=== PATIENT | male | born 1970 | race African-American/Black ===

== ENCOUNTER 2024-10-13 01:25 | Emergency (ER) | payer OTHER, SELFPAY ==
[2024-10-13 01:42] VITALS: BP 171/96; PULSE 87; TEMP 37.3; O2SAT 100; BMI 28.7
--- NOTE | 2024-10-13 01:47 | CT_ITS ---
The [address] [address] Patient Name: YOVANY BROTHERS MRN: [id number] date: 1970 Sex: M Assigned Patient Location: ER Current Patient Location: Accession/Order Number: [id number] Exam Date: 10/13/2024 02:14 Report Date: 10/13/2024 03:22 At the request of: RAMEZ CONLEY Procedure: CT abdomen pelvis w con EXAM: CT abdomen pelvis w con HISTORY: Left upper quadrant pain. Constipation. COMPARISON: None. TECHNIQUE: IV contrast enhanced CT imaging the abdomen and pelvis was performed using 100 mL of Omnipaque 300. Sagittal and coronal reconstructions are provided. Dose reduction techniques were achieved by using automated exposure control and/or adjustment of mA and/or kV according to patient size and/or use of iterative reconstruction technique. FINDINGS: CT ABDOMEN: The lung bases are clear. The heart is unremarkable. The liver, gallbladder, pancreas, spleen and right adrenal gland are unremarkable. There is a nonspecific 1.1 cm left adrenal nodule measuring 53 Hounsfield units on image 29 of series 3, not meeting CT criteria for an adenoma. There is multifocal bilateral renal cortical scarring. The kidneys are otherwise unremarkable. The stomach, small bowel and IVC are normal in appearance. There are mild calcifications in the otherwise unremarkable abdominal aorta and iliac arteries. CT PELVIS: A normal appendix is seen on images 64 through 75. The pelvic small bowel loops and urinary bladder are unremarkable. The prostate is enlarged. There is mild left colon diverticulosis with a moderate to large volume of stool in the proximal half of the colon. Fat-containing bilateral inguinal hernias are present. No acute inflammatory change, free fluid, loculated fluid, free air, soft tissue gas or acute osseous abnormality is seen in the abdomen or pelvis. CT/CT abdomen pelvis w con IMPRESSION: 1. No acute diagnostic abnormality in the abdomen or pelvis. No specific cause of left upper quadrant pain is identified. 2. Nonspecific 1.1 cm left adrenal nodule not meeting CT criteria for an adenoma. 3. Moderate to large volume of stool in the proximal half of the colon corresponding to provided history of constipation. 4. Prostatomegaly. Electronically authenticated by: TOBY SORTO Date: 10/13/2024 03:22
--- NOTE | 2024-10-13 01:48 | ED_ITS ---
HPI - Abdominal Pain General Chief Complaint: Abdominal Pain Stated Complaint: ABD PAIN constipation Time Seen by Provider: 10/13/24 01:44 History of Present Illness HPI narrative: patient presents complaining of abdominal pain. no nausea or vomiting. States it feels like a bubble LUQ area. States similar pain in the past . Has tried OTC laxatives without any benefit. Describes passing 2 small stools. No nausea or vomiting Related Data Home Medications ?Medication ?Instructions ?Recorded ?Confirmed No Known Home Medications 10/13/24 10/13/24 Allergies Allergy/AdvReac Type Severity Reaction Status Date / Time No Known Drug Allergies Allergy Verified 10/13/24 01:49 Review of Systems ROS Status of ROS 10 or more systems reviewed and unremark able except as noted in history and below PFSH PFSH Social History Little interest or pleasure in doing things: not at all Feeling down, depressed, or hopeless: not at all Exam Constitutional Vital Signs, click to edit/add: Last Vital Signs Temp 99.1 F 10/13/24 01:42 Pulse 87 10/13/24 01:42 Resp 16 10/13/24 01:42 BP 171/96 H 10/13/24 01:42 Pulse Ox 100 10/13/24 01:42 O2 Del Method Room Air 10/13/24 01:42 Common normals: no apparent distress, average body habitus, oriented x3, no limitations, healthy appearing, alert and well nourished [facility] Common normals: normocephalic and head/scalp atraumatic Eye Common normals: PERRL, EOMs intact bilaterally and conjunctivae normal Respiratory Common normals: normal respiratory effort, no retractions, no use of accessory muscles and clear to auscultation bilaterally Cardio Common normals: regular rate, regular rhythm, S1 normal heart sound and S2 normal heart sound GI Common normals: Normal to inspection, nondistended, normoactive bowel sounds present, soft to palpation and non-tender Extremity Common normals: normal to inspection and full ROM Neuro Common normals: oriented x3, CN's II-XII intact bilaterally, moves all extremities and no focal motor deficits Psych Appearance: grossly normal Course Vital Signs Vital signs: Vital Signs Temperature 99.1 F 10/13/24 01:42 Pulse Rate 87 10/13/24 01:42 Respiratory Rate 16 10/13/24 01:42 Blood Pressure 171/96 H 11/18/24 01:42 Pulse Oximetry 100 10/13/24 01:42 Oxygen Delivery Method Room Air 10/13/24 01:42 Temperature 99.1 F 10/13/24 01:42 Pulse Rate 87 10/13/24 01:42 Respiratory Rate 16 10/13/24 01:42 Blood Pressure 171/96 H 10/13/24 01:42 Pulse Oximetry 100 10/13/24 01:42 Oxygen Delivery Method Room Air 10/13/24 01:42 MDM - Abdominal Pain MDM Narrative Medical decision making narrative: patient presents complaining of constipation. States he tried OTC medication without success. Abdominal exam unremarkable. CT with findings of constipation with stool in proximal half of the colon. No assocaited nausea or vomiting. labs with BS 245. Patient is known diabetic and was on Metformin in the past but he self d/yana. He is in no distress. given dose of magnesium citrate and advised to follow up with his doctor regarding his diabetes and constipation labs also demonstrate mild elevation of lipase and alk phos. Again abdomen is nontender and CT without any abnormal findings related to his biliary tract or pancreas Lab Data Labs: Lab Results 10/13/24 Range/Units 02:03 WBC 6.7 (4.0-11.0) 10^3/uL RBC 5.60 (4.70-6.10) 10^6/uL Hgb 16.2 (14.0-18.0) g/dL Hct 47.0 (42.0-54.0) % MCV 83.9 (80.0-94.0) fL MCH 28.9 (25.9-34.0) pg MCHC 34.5 (29.9-35.2) g/dL RDW 12.6 (11.0-15.0) % Plt Count 183 (150-450) 10^3/uL MPV 11.0 (9.5-13.5) fL Neut % (Auto) 57.9 (43.0-75.0) % Lymph % (Auto) 33.3 (20.5-60.0) % Mower % (Auto) 7.6 (1.7-12.0) % Eos % (Auto) 0.6 L (0.9-7.0) % Baso % (Auto) 0.6 (0.2-2.0) % Neut # (Auto) 3.9 (1.4-6.5) 10^3/uL Lymph # (Auto) 2.2 (1.2-3.8) 10^3/uL Mower # (Auto) 0.5 (0.3-0.8) 10^3/uL Eos # (Auto) 0.0 (0.0-0.7) 10^3/uL Baso # (Auto) 0.0 (0.0-0.1) 10^3/uL Abs Immat Gran (auto) 0.00 (0.00-0.03) 10^3/uL Imm/Tot Granulo (auto) 0.0 (0.0-0.5) % Sodium 137 (136-145) mmol/L Potassium 4.2 (3.5-5.1) mmol/L Chloride 102 (98-107) mmol/L Carbon Dioxide 24.8 (21.0-32.0) mmol/L Anion Gap 14.4 BUN 13.0 (7.0-18.0) mg/dL Creatinine 1.10 (0.70-1.30) mg/dL Est GFR ( Amer) >60 (>=60 mL/min/1.73m^2) Est GFR (Non-Af Amer) >60 (>=60 mL/min/1.73m^2) BUN/Creatinine Ratio 11.8 Glucose 245 H (74-106) mg/dL Calcium 9.2 (8.5-10.1) mg/dL Total Bilirubin 0.5 (0.2-1.0) mg/dL AST 11 L (15-37) U/L ALT 15 L (16-63) U/L Alkaline Phosphatase 119 H (46-116) U/L Total Protein 7.5 (6.4-8.2) g/dL Albumin 3.8 (3.4-5.0) g/dL Globulin 3.7 g/dL Albumin/Globulin Ratio 1.0 Lipase 114.0 H (16.0-77.0) U/L Imaging Data Abdominal x-ray: Radiologist's impression: ITS Impressions Abdomen/Pelvis CT 10/13/24 01:47 IMPRESSION: 1. No acute diagnostic abnormality in the abdomen or pelvis. No specific cause of left upper quadrant pain is identified. 2. Nonspecific 1.1 cm left adrenal nodule not meeting CT criteria for an adenoma. 3. Moderate to large volume of stool in the proximal half of the colon corresponding to provided history of constipation. 4. Prostatomegaly. Electronically authenticated by: TOBY SORTO Date: 10/13/2024 03:22 Discharge Plan Discharge Chief Complaint: Abdominal Pain Clinical Impression: Constipation, Diabetes Patient Disposition: Home, Self-Care Prescriptions / Home Meds: No Action No Known Home Medications Print Language: Sinhala Instructions: Constipation (ED), Type 2 Diabetes Management for Adults (ED) Additional Instructions: follow up with your doctor this week Referrals: Physician,Non-Staff, MD [Primary Care Provider] - 1 week
[2024-10-13 02:16] LABS: Basophils Percent Auto 0.6 % (0.2-2.0); Eosinophils Percent Auto 0.6 % (0.9-7.0); Hemoglobin 16.2 g/dL (14.0-18.0); Lymphocytes Absolute Auto 2.2 10^3/uL (1.2-3.8); Lymphocytes Percent Auto 33.3 % (20.5-60.0); Mean Corpuscular HGB Conc 34.5 g/dL (29.9-35.2); Mean Corpuscular Hemoglobin 28.9 pg (25.9-34.0); Mean Corpuscular Volume 83.9 fL (80.0-94.0); Monocytes Absolute Auto 0.5 10^3/uL (0.3-0.8); Monocytes Percent Auto 7.6 % (1.7-12.0); Neutrophils Absolute Auto 3.9 10^3/uL (1.4-6.5); Neutrophils Percent Auto 57.9 % (43.0-75.0); Platelet Count 183 10^3/uL (150-450); Red Cell Distribution Width 12.6 % (11.0-15.0); White Blood Count 6.7 10^3/uL (4.0-11.0)
[2024-10-13 02:36] LABS: Alanine Aminotransferase 15 U/L (16-63); Albumin Level 3.8 g/dL (3.4-5.0); Alkaline Phosphatase 119 U/L (46-116); Anion Gap 14.4; Aspartate Amino Transferase 11 U/L (15-37); BUN Creatinine Ratio 11.8; Bilirubin Total 0.5 mg/dL (0.2-1.0); Calcium 9.2 mg/dL (8.5-10.1); Carbon Dioxide 24.8 mmol/L (21.0-32.0); Chloride 102 mmol/L (98-107); Estimated GFR (African America >60 (>=60 mL/min/1.73m^2); Estimated GFR (Non-African Ame >60 (>=60 mL/min/1.73m^2); Globulin 3.7 g/dL; Glucose 245 mg/dL (74-106); Potassium 4.2 mmol/L (3.5-5.1); Sodium 137 mmol/L (136-145); Total Protein 7.5 g/dL (6.4-8.2)
[2024-10-13] MEDS: MAGNESIUM CITRATE 296 ML SOLUTION PO (03:59)
== END 2024-10-13 04:20 | disposition home or self-care (01) ==
PROVIDERS: Emergency Provider Internal Medicine; PCP Family Medicine
DX: K59.00 Constipation, unspecified (principal); E11.9 Type 2 diabetes mellitus without complications; T38.3X6A Underdosing of insulin and oral hypoglycemic [antidiabetic] drugs, initial encounter; Z91.128 Patient's intentional underdosing of medication regimen for other reason
CPT/HCPCS: 36415; 74177; 80053; 83690; 85025; 99285; Q9967